=== PATIENT | female | born 1995 | race Caucasian/White ===

== ENCOUNTER 2019-05-26 19:10 | Inpatient (IN) ==
[~2019-05-26 19:10] MED LIST: *HR* Nalbuphine 10 MG/ML AMPUL IVP PRN; Famotidine 20 MG/2 ML VIAL IVP PRN; Metoclopramide 10 MG/2 ML VIAL IVP PRN; Naloxone 0.4 MG/ML INJ IVP PRN; Ondansetron 4 MG/2 ML VIAL IVP PRN
[2019-05-26] MEDS ORDERED: Ringers Solution, Lactated 1,000 ML IVC SCH (19:15)
[2019-05-26] MEDS ORDERED: Ringers Solution, Lactated 1,000 ML ONE (19:17)
[2019-05-26] MEDS ORDERED: *HR* FentaNYL (PF) 100 MCG/2 ML VIAL EP ONE (19:26)
[2019-05-26] MEDS ORDERED: Ropivacaine/PF 0.2% 20 ML VIAL EP ONE (19:26)
[2019-05-26] MEDS ORDERED: Naloxone 0.4 MG/ML INJ IVP PRN (19:26)
[2019-05-26] MEDS ORDERED: EPHEDrine 50 MG/ML VIAL IVP PRN (19:26)
[2019-05-26] MEDS ORDERED: Ondansetron 4 MG/2 ML VIAL IVP PRN (19:26)
--- NOTE | 2019-05-26 19:29 | Anesthesia Evaluation PreOp ---
Date of Encounter: 05/26/19 Time of Encounter: 19:20 - Past History Planned Operation: GUILLE Cardiac History: Denies any Significant Hx Pulmonary History: Denies Any Significant HX TECHNICAL SUPPORT REPRESENTATIVE History: Denies Any Significant HX Other Medical History: Denies Any Significant HX Anesthesia History: No Prior Anesthetic Complications, Past Anesthesia (Previous epidural, wisdom teeth extraction, eye surgery as a child) : Yes Alcohol Use: none Drug use: none Medications and Allergies Ferrous Sulfate 325 mg PO BID 05/26/19 [History] Vitamin Tablet 1 / PO DAILY 05/26/19 [History] Allergy/AdvReac Type Severity Reaction Status Date / Time No Known Allergies Allergy Verified 11/12/18 11:47 - Meds/Allergy Pre-op Review Medications Reviewed: Yes Allergies Reviewed: Yes Beta Blockers on Current Med List: No Anesthesia Results - Labs 05/26/19 19:00 Anesthesia Exam BP 118/76 P 79 R 18 T 98.6 FHT 148 Height: 5'1" Weight: 51.7kg NPO (# of Hours): 2 Pain Scale: 6 Pain Scale Used: Numeric (1 - 10) - HEENT Pupil (Motor): Pupils equal Mallampati: II Teeth: Normal Oral Opening: Greater than 3 - TECHNICAL SUPPORT REPRESENTATIVE LOC: Oriented TECHNICAL SUPPORT REPRESENTATIVE Motor: Normal RUE, Normal LUE, Normal RLE, Normal LLE, Normal Face TECHNICAL SUPPORT REPRESENTATIVE Sensory: Normal: RUE, LUE, RLE, LLE, Face - Cardiac Rhythm: Regular Murmur: None JVD: No Carotid Bruit: No - Pulmonary Breath Sounds: bilateral Clear Respiratory Effort: Symmetrical Anesthesia Assess/Plan ASA Score: 2 Level of consciousness: Cooperative, Oriented, Tranquil Anesthetic Plan: Epidural Autologous Blood: No Monitoring Plan: Standard Monitors Recovery Plan: Other
[2019-05-26] MEDS ORDERED: Epidural Premix (fent/bupiv) 110 ML EP SCH (19:30)
[2019-05-26] MEDS ORDERED: *HR* FentaNYL (PF) 100 MCG/2 ML VIAL ONE (19:34)
[2019-05-26 19:41] LABS: Basophils % 0.2 %; Eosinophils % 0.1 %; Hematocrit 31.5 % (35.3-44.9); Hemoglobin 10.3 g/dL (11.5-15.4); Immature Granulocytes % 0.4 % (0-4); Lymphocytes # 1.8 K/mcL (0.6-4.6); Lymphocytes % 12.8 %; Mean Corpuscular HGB Conc 32.7 g/dL (31.6-35.5); Mean Corpuscular Hemoglobin 27.5 pg (28.0-33.3); Mean Corpuscular Volume 84.2 fL (83.0-100.0); Mean Platelet Volume 10.4 fL (9.4-12.4); Monocytes # 0.6 K/mcL (0.0-1.3); Monocytes % 4.1 %; Neutrophils # 11.4 K/mcL (1.6-8.9); Nucleated Red Blood Cells 0.1 /100 WBC (0); Platelet Count 294 K/mcL (140-400); Red Blood Count 3.74 M/mcL (3.82-4.97); Red Cell Distribution Width 14.1 % (11.5-14.5); Segmented Neutrophils % 82.4 %; White Blood Count 13.8 K/mcL (4.3-11.1)
--- NOTE | 2019-05-26 19:43 | OB/GYN History & Physical ---
Date of Encounter: 05/26/19 Time of Encounter: 19:37 Assessment and Plan (1) 38 weeks gestation of Current visit: Yes Status: Acute Patient has been receiving care with Dr. Monzon. She is in spontaneous labor. Patient is requesting and has plans for an epidural. Anticipate vaginal delivery. (2) Glucose intolerance of Current visit: Yes Status: Acute Abnormal 1 hour GTT of 173. Patient has not had any further testing nor has she been compliant with request for sugar logs and diet recommendations. Nursery will be notified. 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 Barlow is a 23 year old female at 38 weeks and 3 days by a 13 week 5 day ultrasound who presents to labor and delivery reporting contractions after being examined by Dr. Monzon this morning in the office. She denies any vaginal bleeding or loss of fluid. She was 4-5 cm/75% and 0 station in the office and is reported to be 7 cm at presentation on labor and delivery. Her has been complicated by being positive for cystic fibrosis. FOB has been screened to be negative. She is O+, rubella immune, varicella immune and GBS negative. She had an abnormal one-hour Glucola of 173 and has not had a 3 hour or done any blood sugar screenings. She was scheduled for 3 hour and reports she vomited up the fluid that she also never had a fasting glucose. She was unable to use the glucometer and brought in sugar logs that reported all fastings are 95 and all postprandials are 120. She has a history of SGA with her first child weighing 5 lbs. 8 oz. at 37 weeks. She reports that the fetus is active. She is requesting an epidural. She states that after her water broke her second she had 4 contractions and then delivered. She denies any headaches, blurred vision or epigastric pain. She has been taking iron for anemia. Her Pap smear was LSIL with her initial visit. Past Med Surg Social Fam HX - Past Medical History Source: patient, old records reviewed Medical history: asthma, other (Scoliosis) Additional medical history: reports hx of asthma as a child. Psychiatric history: no psych history - Past Surgical History Surgical History: other Additional surgical history: eye surgery at 1 years old - Social History Smoking Status: Never smoker Smokeless Tobacco Status: No Alcohol use: none Drug use: none - Family History Father Living Status: Still Living Hx Family Cardiac Disorders: No Hx Family Respiratory Disorders: Yes (hx of asthma) Hx Family Cancer: No Hx Family GI Disorders: No Hx Family Genitourinary Disorders: No Hx Family Endocrine Disorder: No Hx Family Neuromuscular Disorders: No Hx Family Neurologic Disorders: No Hx Family HEENT Disorders: No Hx Family Autoimmune Disorders: No Hx Family Reproductive Disorders: No Hx Family Psychosocial Disorders: No Hx Family Medical Disorders: No Obstetrical History - Pregnancies : 3 Term: 2 Medications and Allergies Ferrous Sulfate 325 mg PO BID 05/26/19 [History] Vitamin Tablet 1 / PO DAILY 05/26/19 [History] Allergy/AdvReac Type Severity Reaction Status Date / Time No Known Allergies Allergy Verified 11/12/18 11:47 Review of System OB All systems PM: reviewed and no additional remarkable complaints except as stated - Constitutional Constitutional ROS IM: as per HPI, weight gain Exam - Vital Signs Vital signs: Afebrile, vital signs stable. heart tones 130s, CAT 1 - Constitutional Constitutional: no acute distress, thin - HEENT HEENT: Normocephaly, Mucus Membranes Moist - Neck Neck exam: normal inspection, supple - Lungs Respiratory exam: CTAB - Cardiovascular Cardiovascular exam: RRR - Abdomen Abdomen: Present: gravid, non tender - Extremities Extremities exam: normal inspection, warm Deep Tendon Reflex Grade: 3+ Normal But Brisk - Cervix Dilation: 7 (Vertex Per RN) Results All other labs normal. - VTE Reasons for not Prescribing Prophylaxis: Treatment not Indicated - Low risk for VTE
[2019-05-26 19:49] LABS: Amphetamine Screen,Urine Negative ng/mL (Cutoff=1000); Barbiturate Screen,Urine Negative ng/mL (Cutoff=200); Benzodiazepines Screen,Urine Negative ng/mL (Cutoff=200); Cannabinoid Screen,Urine Negative ng/mL (Cutoff = 50); Cocaine Screen,Urine Negative ng/mL (Cutoff= 300); Opiate Screen,Urine Negative ng/mL (Cutoff=300); Phencyclidine Screen,Urine Negative ng/mL (Cutoff=25)
--- NOTE | 2019-05-26 20:38 | Anesthesia Procedures ---
Date of Encounter: 05/26/19 Time of Encounter: 19:54 Procedures: Anesthesia - Epidural/Spinal Patient ID/Chart reviewed: Yes Patient examined: Yes OB Eval: Gestational age: 38 OB Eval: : 3 OB Eval: Hx Para: 2 OB Eval: Dilated at (cm): 8 OB Eval: Contractions: Non-stressed pattern Consent Obtained: Yes Supplemental Oxygen: None/Room Air Site Prep: Aseptic Technique, Sterile prep and drape, Povidone-Iodine 1% Patient position: upright Local Anesthetic: Lidocaine 1% Amount of Local Anesthetic used: 3 Touhy Needle Gauge: 18 Touhy Needle Depth (cm): 3 Catheter Depth at Skin (cm): 11 Test Dose (1.5% Lido + Epi): Volume given (mls): 3 Test Dose Result: Negative Loading Dose: Fentanyl (mcg): 100 Loading Dose: Other: Ropivicaine 0.2% 5ml, Normal saline 3ml Loading Dose Administered: Thru Catheter Infusion Med: 0.125% Bupivacaine w/ 2 mcg/ml Fentanyl Interspace Used: L3-L4 Loss of Resistance (CARLY): Yes Blood: No CSF: No Paresthesia: No Procedure: GUILLE placed 1st pass in upright position. CARLY achieved with Normal Saline. Catheter threaded with ease to 11cm at the skin. Test dose negative. Pt stated comfort following bolus dose administration. VSS throughout. Vitals + FHT's: 1953 BP 118/76 P 79 R 18 2011 BP 109/63 P 113 R 16 FHT 140s
[2019-05-26] MEDS ORDERED: Oxytocin 20 units/ LR 1000 mL 20 UNIT/1,000 ML BAG IVC ONE ×2 (21:56→23:58)
--- NOTE | 2019-05-26 22:54 | OB Labor Progress Note ---
Date of Encounter: 05/26/19 Time of Encounter: 21:50 Labor Progress Note - Subjective Subjective: Patient comfortable with her epidural and sleeping - Vital Signs Vital Signs: Afebrile, vital signs stable - Cervix Cervix: Rim/100/0, vertex - Heart Tones Heart Tones: 140s baseline, CAT 1 - [place]: Contractions spontaneous Q2 to 3 minutes - Interventions Interventions: 38 week IUP in spontaneous labor with epidural anesthesia - Plan Plan: Amniotomy, moderate amount of clear fluid seen. Anticipate vaginal delivery
--- NOTE | 2019-05-26 22:58 | OB/GYN Procedure Note ---
Delivery - Delivery Date: 05/26/19 Provider: Lynne Sifuentes Intrapartum events: none Delivery induction: none Delivery monitor: external FHT, external uterine Anesthesia: epidural Quantitated Blood Loss: 200 - (s) Infant A Delivery Date: 05/26/19 Infant Delivery Time: 22:32 Presentation: vertex Position: ROE Route of delivery: Gender: Female Viability: Viable Pounds: 7 Ounces: 9 Weight Gram: 3.45 kg at 1 minute: 9 at 5 mins: 9 Shoulder Dystocia: not encountered Specimens collected: cord blood Placenta: spontaneous Cord: 3 umbilical vessels - Repair Episiotomy: none Laceration Description: None - Complications Delivery complications: none Delivery comments: The patient was complete and pushing with epidural anesthesia with a spontaneous vaginal delivery in the ROE position of a vigorous _female_ infant weighing _7 lbs._9 oz. with Apgars of _9 at 1 minute and _9 at 5 minutes. was placed on the maternal abdomen and care transferred to the nursery care team. The cord was clamped and cut after pulsations ceased. Cord blood obtained. The placenta was delivered spontaneous and intact. Three-vessel cord confirmed. There were no perineal, vaginal or cervical lacerations. Estimated blood loss _200_ mL, complications none. Both mother and were recovering in stable condition in the LDR - Disposition Mom disposition: stable in LDR [place] disposition: stable in LDR
[2019-05-27] MEDS ORDERED: Benzocaine/Menthol 56 GM AEROSOL SPRAY TP PRN (01:21)
[2019-05-27] MEDS ORDERED: Acetaminophen 325 MG TABLET PO PRN (01:21)
[2019-05-27] MEDS ORDERED: Ibuprofen 600 MG TABLET PO PRN (01:21)
[2019-05-27] MEDS ORDERED: Oxytocin 20 units/ LR 1000 mL 20 UNIT/1,000 ML BAG IVC SCH (01:21)
[2019-05-27] MEDS ORDERED: Lanolin 7 G OINT...G. TP PRN (01:21)
[2019-05-27] MEDS: Docusate Oral Soln 100 MG/10 ML UDC PO SCH ×2 (10:11→22:38)
[2019-05-27] MEDS: Ferrous Sulfate Oral Soln 300 MG/5 ML UDC PO SCH (10:11)
[2019-05-27] MEDS: Prenatal Vit/FA 1 EACH TABLET PO SCH (10:12)
--- NOTE | 2019-05-27 12:14 | OB/GYN Progress Note ---
Date of Encounter: 05/27/19 Time of Encounter: 12:11 - Assessment and Plan (1) Encounter for tubal ligation counseling Current Visit: Yes Status: Acute Patient desires tubal ligation. Consent signed today (2) Vaginal delivery Current Visit: No Status: Acute Meeting all day 1 milestones Continue routine care Anticipate discharge home tomorrow Subjective - Subjective Principal diagnosis: s/p Interval history: Feeling well. Out of bed without dizziness. Some perineal discomfort-using ice pack. Cramping minimal, using ibuprofen. Bottlefeeding every 2-3 hours. Some nipple soreness. Voiding without difficulty. Passing flatus, no BM yet. Tolerating regular diet. Patient reports: appetite normal, voiding normally, pain well controlled, ambulating normally : doing well, bottle feeding Objective - Latest Vital Signs Latest vital signs: Vital Signs Temp Pulse Resp BP Pulse Ox 05/27/19 08:14 99.1 F 89 16 114/69 98 05/27/19 03:00 98.5 F 62 14 115/67 97 05/27/19 02:00 98.2 F 65 14 127/77 98 05/27/19 01:09 98.2 F 72 16 119/71 97 Intake and Output 05/26/19 05/27/19 05/27/19 23:59 07:59 15:59 Other: Weight 51.71 kg 49.2 kg Patient Weight 05/27/19 23:59 Weight 49.2 kg - Exam Lungs: bilateral: normal Chest: Normal S1, Normal S2 Extremities: Present: normal Abdomen: Present: normal appearance, soft Uterus: Present: normal, firm Uterus Position: 2 Fingers Below Umbilicus, Midline - Labs Labs: Laboratory Results - last 24 hr 05/26/19 05/26/19 05/26/19 19:00 19:00 20:36 WBC 13.8 H RBC 3.74 L Hgb 10.3 L Hct 31.5 L MCV 84.2 MCH 27.5 L MCHC 32.7 RDW 14.1 Plt Count 294 MPV 10.4 Immature Gran % 0.4 Seg Neutrophils % 82.4 Lymphocytes % 12.8 Monocytes % 4.1 Eosinophils % 0.1 Basophils % 0.2 Neutrophils # 11.4 H Lymphocytes # 1.8 Monocytes # 0.6 Eosinophils # 0.0 Basophils # 0.0 Nucleated RBCs/100 WBC 0.1 H POC Glucose 111 H Urine Opiates Screen Negative Ur Buprenorphine Scrn Negative Ur Barbiturates Screen Negative Ur Phencyclidine Scrn Negative Ur Amphetamines Screen Negative U Benzodiazepines Scrn Negative Urine Cocaine Screen Negative U Marijuana (THC) Screen Negative Ur Drug Screen Interp See Below
--- NOTE | 2019-05-28 10:01 | Discharge Summary ---
Date of Encounter: 05/28/19 Time of Encounter: 09:54 - Discharge Diagnosis (1) Vaginal delivery Priority: Primary Status: Acute Comments: Stable, pain well managed, bleeding minimal, bottle feeding, desires discharge - Discharge Medications Prescriptions: New Acetaminophen [Tylenol] 650 mg PO Q6H PRN tablet PRN Reason: Mild Pain Ibuprofen Susp [Motrin Susp] 600 mg PO Q6H PRN #600 udc PRN Reason: Pain Ferrous Sulfate Oral Soln 300 mg PO DAILY #150 udc Lanolin [Lansinoh] 1 appl TP TID PRN oint...g. PRN Reason: Sore Nipples Benzocaine/Menthol [place] [Dermoplast Crowley] 1 appl TP QID PRN aerosol PRN Reason: See Comments Docusate [Colace] 100 mg PO BID udc Continued Vitamin Tablet 1 / PO DAILY Discontinued Ferrous Sulfate 325 mg PO BID Home Medications: Vitamin Tablet 1 / PO DAILY 05/26/19 [History] Acetaminophen [Tylenol] 650 mg PO Q6H PRN tablet 05/28/19 [Rx] Benzocaine/Menthol [place] [Dermoplast [place]ley] 1 appl TP QID PRN aerosol 05/28/19 [Rx] Docusate [Colace] 100 mg PO BID udc 05/28/19 [Rx] Ferrous Sulfate Oral Soln 300 mg PO DAILY #150 udc 05/28/19 [Rx] Ibuprofen Susp [Motrin Susp] 600 mg PO Q6H PRN #600 udc 05/28/19 [Rx] Lanolin [Lansinoh] 1 appl TP TID PRN oint...g. 05/28/19 [Rx] Allergies/Adverse Reactions: Allergy/AdvReac Type Severity Reaction Status Date / Time No Known Allergies Allergy Verified 11/12/18 11:47 Data Procedures and tests throughout hospitalization: Laboratory Tests 05/26/19 05/26/19 05/26/19 19:00 19:00 20:36 WBC 13.8 H RBC 3.74 L Hgb 10.3 L Hct 31.5 L MCV 84.2 MCH 27.5 L MCHC 32.7 RDW 14.1 Plt Count 294 MPV 10.4 Immature Gran % 0.4 Seg Neutrophils % 82.4 Lymphocytes % 12.8 Monocytes % 4.1 Eosinophils % 0.1 Basophils % 0.2 Neutrophils # 11.4 H Lymphocytes # 1.8 Monocytes # 0.6 Eosinophils # 0.0 Basophils # 0.0 Nucleated RBCs/100 WBC 0.1 H POC Glucose 111 H Urine Opiates Screen Negative Ur Buprenorphine Scrn Negative Ur Barbiturates Screen Negative Ur Phencyclidine Scrn Negative Ur Amphetamines Screen Negative U Benzodiazepines Scrn Negative Urine Cocaine Screen Negative U Marijuana (THC) Screen Negative Ur Drug Screen Interp See Below Date of admission: 05/26/19 19:10 Primary care physician: PCP NONE Consults: 05/27/19 01:21 Consult to [facility] [place] [CONS] Routine Comment: Vaginal delivery, consult needed Discharging clinician: Tamika Hartman Anticipated date of discharge: 05/28/19 - Patient Status Disposition: Home, Self-Care Condition: Good Functional capacity at discharge: independent ambulation Overall status at discharge: patient is progressing back to baseline - Discharge Instructions Follow Up With: NONE,PCP [Primary Care Provider] - Aggie Monzon DO [Partnered Physician] - - Diet and Activity Activity: resume usual activities as tolerated Diet: regular diet Hospital Course Reason for admission: IUP at term Delivery: Episiotomy: none Laceration: none Other procedures: none complications: none Discharge diagnosis: IUP at term delivered [place] baby: female Hospital course: - Delivery Date: 05/26/19 Provider: Lynne Sifuentes Intrapartum events: none Delivery induction: none Delivery monitor: external FHT, external uterine Anesthesia: epidural Quantitated Blood Loss: 200 - Infant (s) A Delivery Date: 05/26/19 Infant Delivery Time: 22:32 Presentation: vertex Position: ROE Route of delivery: Gender: Female Viability: Viable Pounds: 7 Ounces: 9 Weight Gram: 3.45 kg at 1 minute: 9 at 5 mins: 9 Shoulder Dystocia: not encountered Specimens collected: cord blood Placenta: spontaneous Cord: 3 umbilical vessels - Repair Episiotomy: none Laceration Description: None - Complications Delivery complications: none Delivery comments: The patient was complete and pushing with epidural anesthesia with a spontaneous vaginal delivery in the ROE position of a vigorous _female_ weighing _7 lbs._9 oz. with Apgars of _9 at 1 minute and _9 at 5 minutes. Infant was placed on the maternal abdomen and care transferred to the nursery care team. The cord was clamped and cut after pulsations ceased. Cord blood obtained. The placenta was delivered spontaneous and intact. Three-vessel cord confirmed. There were no perineal, vaginal or cervical lacerations. Estimated blood loss _200_ mL, complications none. Both mother and infant were recovering in stable condition in the LDR - Disposition Mom disposition: stable in PP and appopriate for discharge Time Attestation: Total time spent providing and/or coordinating discharge services: Time Spent: Less than 30 minutes Exam - Constitutional Vitals: Temp Pulse Resp BP Pulse Ox 98.1 F 81 14 117/75 99 05/27/19 20:00 05/27/19 20:00 05/27/19 20:00 05/27/19 20:00 05/27/19 20:00 General appearance IM: A&O X 3 - Respiratory Respiratory exam: Present: CTAB - Cardiovascular Cardiovascular exam IM: Present: RRR - GI/Abdominal GI/Abdominal exam IM: soft - Uterine Tone: Firm Uterus Position: At Umbilicus - Extremities Exam Extremities exam IM: Present: normal capillary refill, normal inspection - Neurological Exam Neurological exam: normal gait, oriented X3 - Psychiatric Additional comments: reports good mood
[2019-05-28] MEDS: Prenatal Vit/FA 1 EACH TABLET PO SCH (10:26)
[2019-05-28 10:27] VITALS: BP 120/84
[2019-05-28] MEDS: Ferrous Sulfate Oral Soln 300 MG/5 ML UDC PO SCH (10:27)
[2019-05-28] MEDS: Docusate Oral Soln 100 MG/10 ML UDC PO SCH (10:27)
== END 2019-05-28 11:15 | disposition home or self-care (01) | DRG 560 ==
LOC: 1NENULAB → 1NENUOBS 05-27 01:20
PROVIDERS: ADMIT Registered Nurse; ATTEND Registered Nurse